=== PATIENT | male | born 1945 | race Caucasian/White ===

== ENCOUNTER → 2020-05-02 | Outpatient (CLI) | payer MEDICARE ==
--- NOTE | 2020-05-02 14:14 | REPVR ---
PROCEDURE INFORMATION: Exam: CT Maxillofacial Without Contrast, Sinus Exam date and time: 05/02/2020 1:59 PM Age: 75 years old Clinical indication: Pain; Other: Pansinusitis; Additional info: Chronic pansinusitis TECHNIQUE: Imaging protocol: CT Maxillofacial without contrast. Focus on the sinuses. Radiation optimization: All CT scans at this facility use at least one of these dose optimization techniques: automated exposure control; mA and/or kV adjustment per patient size (includes targeted exams where dose is matched to clinical indication); or iterative reconstruction. COMPARISON: No relevant prior studies available. FINDINGS: Frontal sinuses: There is an air-fluid level within the left frontal sinus. The left frontoethmoidal recess is obscured. There is trace right inferior frontal sinus mucosal thickening. Ethmoid air cells: There is moderate ethmoid mucosal thickening. Sphenoid sinuses: There is trace fluid within the sphenoid sinuses with diffuse bony wall thickening, compatible with chronic sinusitis. Maxillary sinuses: There are small air-fluid levels within the maxillary sinuses. Maxillary sinus infundibular are obscured by mucosal thickening. Orbits: Orbits are normal. Globes are unremarkable. Nasal cavity/Septum: There is pronounced leftward nasal septal deviation with a spur. There is polypoid mucosal thickening within the right nasal cavity. Soft tissues: Unremarkable. Bones/joints: Unremarkable. IMPRESSION: 1. Multifocal sinusitis. 2. Suspected right nasal polyposis. Electronically signed by: Malathi Lindsay On 05/02/2020 14:14:24 PM
== END ==
LOC: M RAD 13:49
PROVIDERS: ATTEND Specialist
DX: J32.4 Chronic pansinusitis (principal); K21.9 Gastro-esophageal reflux disease without esophagitis

== ENCOUNTER → 2022-06-23 | Outpatient (CLI) | payer MEDICARE | LOC: M CARPUL 08:58 | PROVIDERS: ATTEND Internal Medicine Pulmonary Disease | DX: J47.9 Bronchiectasis, uncomplicated (principal) ==